=== PATIENT | male | born 1970 | race African-American/Black ===

== ENCOUNTER 2018-03-14 18:15 | Emergency (ER) | payer MEDICAID, OTHER ==
[~2018-03-14] VITALS: Ht 190.5 cm; Wt 76.5 kg
[~2018-03-14 18:15] MED LIST: DIVA500T2 PO; HYDR-3237 PO; RIVA15TA PO; RIVA20TA PO; ZOLP10TA PO
[2018-03-14 18:17] VITALS: BP 134/90
[2018-03-14] MEDS ORDERED: HYDROcodone/APAP 5/325 TABLET ONE (18:50)
[2018-03-14] MEDS ORDERED: HYDROcodone/APAP 5/325 TABLET PO ONE (19:00)
== END 2018-03-14 19:14 | disposition home or self-care (01) ==
LOC: ED 19:00
DX: S62.346A Nondisplaced fracture of base of fifth metacarpal bone, right hand, initial encounter for closed fracture (principal); I10 Essential (primary) hypertension; X58.XXXA Exposure to other specified factors, initial encounter; Y93.89 Activity, other specified; Y92.410 Unspecified street and highway as the place of occurrence of the external cause; Y99.8 Other external cause status
CPT/HCPCS: 29125; 82962; 99284

== ENCOUNTER 2018-04-04 23:09 | Emergency (ER) | payer MEDICAID, OTHER ==
[~2018-04-04] VITALS: Ht 190.5 cm; Wt 73.0 kg
[2018-04-04] MEDS ORDERED: ONDANSETRON 2MG/ML, 2ML IVPush ONE (23:30)
[2018-04-04] MEDS ORDERED: SODIUM CHLORIDE FLUSH 10ML SYR IVF ONE (23:30)
[2018-04-04] MEDS ORDERED: MORPHINE SULFATE 4 MG/ML, 1ML IVPush PRN (23:30)
[2018-04-04] MEDS ORDERED: ONDANSETRON 2MG/ML, 2ML ONE (23:31)
[2018-04-04] MEDS ORDERED: MORPHINE SULFATE 4 MG/ML, 1ML ONE (23:31)
[2018-04-04 23:46] LABS: MEAN CORPUSCULAR HEMOGLOBIN 32.5 pg (27.5-34.5); MEAN CORPUSCULAR HGB CONC 33.4 g/dL (33.2-36.2); MEAN CORPUSCULAR VOLUME 97.2 fL (81-97); MEAN PLATELET VOLUME 8.2 fL (7.4-10.4); PLATELET COUNT 247 x10^3/uL (130-400); RED BLOOD COUNT 3.89 x10^6/uL (4.38-5.82); RED CELL DISTRIBUTION WIDTH 15.9 % (9.4-14.8)
[2018-04-04] MEDS ORDERED: ALBUTEROL/IPRATROPIUM 2.5MG/0.5MG, 3 ML ONE (23:52)
[2018-04-04 23:53] LABS: MD YES
[2018-04-04] MEDS: ALBUTEROL/IPRATROPIUM 2.5MG/0.5MG, 3 ML NPPB SCH (23:56)
[2018-04-04 23:58] LABS: ALBUMIN 3.4 g/dL (3.4-5.0); ANION GAP 4 mmol/L (5-15); CALCIUM 8.3 mg/dL (8.5-10.1); CHLORIDE 113 mmol/L (98-107); CREATININE 0.76 mg/dL (0.7-1.3)
[2018-04-05 00:02] LABS: TROPONIN I < 0.015 ng/mL (0.000-0.045)
[2018-04-05 00:17] LABS: LYMPH#(MANUAL) 2.34 x10^3/uL (1-3.4); LYMPHS% (MANUAL) 52 % (22-44); MONOS#(MANUAL) 0.41 x10^3/uL (0.3-2.7); MONOS% (MANUAL) 9 % (2-9); SEG#(MANUAL) 1.76 x10^3/uL (1.8-6.8); SEGS% (MANUAL) 39 % (42-75)
[2018-04-05] MEDS: ALBUTEROL/IPRATROPIUM 2.5MG/0.5MG, 3 ML NPPB SCH (00:22)
[2018-04-05 00:26] LABS: <PLATELET ESTIMATE> ADEQUATE; <PLT MORPHOLOGY> NORMAL PLT MORPH; <RBC MORPHOLOGY> NORMAL
[2018-04-05] MEDS ORDERED: methylPREDNISolone SOD SUCC 125 MG/2 ML IVP ONE (01:00)
[2018-04-05] MEDS ORDERED: OMNIPAQUE 350 MG/ML, 100ML BOTTLE ONE (01:28)
[2018-04-05] MEDS ORDERED: methylPREDNISolone SOD SUCC 125 MG/2 ML ONE (01:40)
[2018-04-05 02:41] VITALS: BP 131/76
== END 2018-04-05 03:00 | disposition home or self-care (01) ==
LOC: ED 04-05 02:55
DX: R07.89 Other chest pain (principal); J45.901 Unspecified asthma with (acute) exacerbation
CPT/HCPCS: 36415; 71045; 71275; 80048; 82040; 83880; 84484; 85025; 93005; 94640; 96374; 96375; 99285; J2405; J2930; J7620; Q9967

== ENCOUNTER 2018-05-12 23:37 | Inpatient (IN) | payer OTHER, MEDICAID ==
[~2018-05-12] VITALS: Ht 190.5 cm; Wt 67.0 kg
[2018-05-13 00:18] LABS: MEAN CORPUSCULAR HEMOGLOBIN 32.2 pg (27.5-34.5); MEAN CORPUSCULAR HGB CONC 33.2 g/dL (33.2-36.2); MEAN CORPUSCULAR VOLUME 97.2 fL (81-97); MEAN PLATELET VOLUME 8.3 fL (7.4-10.4); PLATELET COUNT 214 x10^3/uL (130-400); RED BLOOD COUNT 4.62 x10^6/uL (4.38-5.82); RED CELL DISTRIBUTION WIDTH 13.7 % (9.4-14.8)
[2018-05-13 00:36] LABS: BASOPHILS # (AUTO) 0.04 x10^3/uL (0-0.1); BASOPHILS % (AUTO) 1 % (0-1); EOSINOPHILS # (AUTO) 0.02 x10^3/uL (0-0.4); EOSINOPHILS % (AUTO) 1 % (1-7); LYMPHOCYTES # (AUTO) 1.95 x10^3/uL (1-3.4); LYMPHOCYTES % (AUTO) 59 % (22-44); MD SCAN; MONOCYTES # (AUTO) 0.45 x10^3/uL (0.2-0.8); MONOCYTES % (AUTO) 14 % (2-9); NEUTROPHILS # (AUTO) 0.85 x10^3/uL (1.8-6.8); NEUTROPHILS % (AUTO) 26 % (42-75)
[2018-05-13] MEDS ORDERED: OMNIPAQUE 350 MG/ML, 100ML BOTTLE ONE (00:39)
[2018-05-13 00:41] LABS: INTERNATIONAL NORMALIZED RATIO 0.96 (0.93-1.1); PROTHROMBIN TIME 10.2 Seconds (9.6-11.5)
[2018-05-13] MEDS ORDERED: GUAIFENESIN/COD200MG-20MG/10ML LIQUID PO PRN (01:30)
[2018-05-13] MEDS ORDERED: ACETAMINOPHEN 325 MG TABLET PO PRN (01:30)
[2018-05-13] MEDS ORDERED: LABETALOL 5MG/ML, 20ML IV PRN (01:30)
[2018-05-13] MEDS ORDERED: GABAPENTIN 300 MG CAPSULE PO PRN (01:30)
[2018-05-13] MEDS ORDERED: LORazepam 2 MG/ML, 1ML IV PRN ×3 (01:30)
[2018-05-13] MEDS ORDERED: NICOTINE 14MG/24 HR PATCH.TD24 TD SCH (01:30)
[2018-05-13] MEDS ORDERED: morphine SULFATE 10 MG/ML, 1ML IVPush PRN (01:30)
[2018-05-13] MEDS ORDERED: LORazepam 0.5MG TABLET PO PRN (01:30)
[2018-05-13] MEDS ORDERED: THIAMINE 200 MG in DEXTROSE 5% 50 ML IVPB ONE (01:30)
[2018-05-13] MEDS ORDERED: DOCUSATE 100 MG CAPSULE PO PRN (01:30)
[2018-05-13] MEDS ORDERED: LORazepam 1MG TABLET PO PRN ×2 (01:30→10:30)
[2018-05-13 02:30] LABS: AMPHETAMINE SCREEN, URINE Negative (Negative); BARBITURATE SCREEN, URINE Negative (Negative); BENZODIAZEPINE SCREEN, URINE Negative (Negative); CANNABINOID SCREEN, URINE Negative (Negative); COCAINE SCREEN, URINE Negative (Negative); METHADONE SCREEN, URINE Negative (Negative); OPIATE SCREEN, URINE Negative (Negative)
[2018-05-13 03:51] VITALS: BP 132/87
[2018-05-13] MEDS: POTASSIUM CHLORIDE 20 MEQ, MVI ADULT 10 ML, FOLIC ACID 1 MG, MAGNESIUM SULFATE 1 GM in ... IV SCH ×2 (05:22→15:11)
[2018-05-13 06:17] LABS: ALBUMIN 3.4 g/dL (3.4-5.0); ANION GAP 9 mmol/L (5-15); CALCIUM 8.1 mg/dL (8.5-10.1); CHLORIDE 111 mmol/L (98-107)
[2018-05-13 06:22] LABS: ALANINE AMINOTRANSFERASE 20 U/L (12-78); ALKALINE PHOSPHATASE 72 U/L (45-117); BILIRUBIN,TOTAL 0.3 mg/dL (0.2-1.0); CREATININE 0.72 mg/dL (0.7-1.3); TOTAL PROTEIN 7.9 g/dL (6.4-8.2)
[2018-05-13 06:25] LABS: HEMOGLOBIN A1C 4.9 % (4.2-6.3)
[2018-05-13] MEDS: ONDANSETRON 2MG/ML, 2ML IVPush PRN ×2 (06:27→12:50)
[2018-05-13 06:55] VITALS: BP 117/77
[2018-05-13] MEDS ORDERED: DIVALPROEX 500 MG TABLET.DR PO SCH (09:00)
[2018-05-13 12:21] VITALS: BP 131/87
[2018-05-13] MEDS ORDERED: ATORVASTATIN 40 MG TABLET PO SCH (21:00)
[2018-05-14] MEDS ORDERED: THIAMINE 100 MG in DEXTROSE 5% 50 ML IVPB SCH (09:00)
== END 2018-05-13 16:55 | DRG 312 ==
LOC: ED 05-13 00:51 → EDIP 05-13 00:56 → 4WST 05-13 03:58
PROVIDERS: ADMIT Internal Medicine; ATTEND Internal Medicine
DX: R55 Syncope and collapse (principal); F10.129 Alcohol abuse with intoxication, unspecified; E11.9 Type 2 diabetes mellitus without complications; F17.210 Nicotine dependence, cigarettes, uncomplicated; F31.9 Bipolar disorder, unspecified; M62.81 Muscle weakness (generalized); I07.1 Rheumatic tricuspid insufficiency; I11.9 Hypertensive heart disease without heart failure; R56.9 Unspecified convulsions; G89.29 Other chronic pain; Z90.49 Acquired absence of other specified parts of digestive tract; Z88.0 Allergy status to penicillin; Z88.8 Allergy status to other drugs, medicaments and biological substances; Z82.49 Family history of ischemic heart disease and other diseases of the circulatory system; Z83.3 Family history of diabetes mellitus; Z86.711 Personal history of pulmonary embolism; Z86.73 Personal history of transient ischemic attack (TIA), and cerebral infarction without residual deficits
CPT/HCPCS: 36415; 70450; 70496; 70498; 70551; 80047; 80053; 80307; 82962; 83036; 85025; 85379; 85610; 85730; 93005; 93306; 99291; G0378; J2405; J3411; J3475; J3480; Q9967; 92523-GN

== ENCOUNTER 2018-08-22 15:49 | Emergency (ER) | payer MEDICAID ==
[~2018-08-22] VITALS: Ht 190.5 cm; Wt 87.0 kg
[2018-08-22 16:04] VITALS: BP 143/95
--- NOTE | 2018-08-22 16:11 | NUR ---
PT ON BP CUFF, PULSE OX. PT REFUSES GOWN BUT HAS NO COMPLAINTS OF PHYSICAL PAIN OR DISCOMFORT AT THIS TIME. PT INTOXICATED AND EMOTIONAL AT THIS TIME BUT COOPERATIVE WITH CARE. MULUGETA AT BS. CALL LIGHT WITHIN REACH.
--- NOTE | 2018-08-22 17:29 | NUR ---
REVIEWED XRAY AND POC WITH PT AND FAMILY. PT STATES UNABLE TO WALK AT THIS TIME. WILL CONTINUE TO MONITOR AND REASSESS.
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
== END 2018-08-22 17:53 | disposition home or self-care (01) ==
LOC: ED 17:47
DX: F10.120 Alcohol abuse with intoxication, uncomplicated (principal); J45.909 Unspecified asthma, uncomplicated; I10 Essential (primary) hypertension; F31.9 Bipolar disorder, unspecified; Z86.73 Personal history of transient ischemic attack (TIA), and cerebral infarction without residual deficits; Z88.6 Allergy status to analgesic agent; Z88.0 Allergy status to penicillin; Z88.8 Allergy status to other drugs, medicaments and biological substances; Y90.9 Presence of alcohol in blood, level not specified
CPT/HCPCS: 71045; 99283

== ENCOUNTER 2018-12-11 13:53 | Emergency (ER) | payer MEDICAID ==
[~2018-12-11] VITALS: Ht 177.8 cm; Wt 63.2 kg
[2018-12-11 14:12] LABS: BASOPHILS # (AUTO) 0.01 x10^3/uL (0-0.1); BASOPHILS % (AUTO) 0 % (0-1); EOSINOPHILS % (AUTO) 0 % (1-7); LYMPHOCYTES # (AUTO) 1.95 x10^3/uL (1-3.4); LYMPHOCYTES % (AUTO) 54 % (22-44); MD NO; MEAN CORPUSCULAR HEMOGLOBIN 32.8 pg (27.5-34.5); MEAN CORPUSCULAR HGB CONC 33.2 g/dL (33.2-36.2); MEAN CORPUSCULAR VOLUME 98.7 fL (81-97); MONOCYTES # (AUTO) 0.41 x10^3/uL (0.2-0.8); MONOCYTES % (AUTO) 11 % (2-9); NEUTROPHILS # (AUTO) 1.23 x10^3/uL (1.8-6.8); NEUTROPHILS % (AUTO) 34 % (42-75); PLATELET COUNT 197 x10^3/uL (130-400); RED BLOOD COUNT 4.69 x10^6/uL (4.38-5.82); RED CELL DISTRIBUTION WIDTH 13.8 % (9.4-14.8)
[2018-12-11 14:21] LABS: INTERNATIONAL NORMALIZED RATIO 0.94 (0.93-1.1); PROTHROMBIN TIME 9.9 Seconds (9.6-11.5)
[2018-12-11] MEDS ORDERED: RIVA10TA2 PO (14:32)
[2018-12-11] MEDS ORDERED: ACETAMINOPHEN 325 MG TABLET PO STA (14:39)
[2018-12-11] MEDS ORDERED: SUMATRIPTAN 6MG/0.5ML SQ STA (14:39)
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
--- NOTE | 2018-12-11 14:40 | NUR ---
DR. GARNICA AT BEDSIDE.
[2018-12-11] MEDS ORDERED: SUMATRIPTAN 6MG/0.5ML SQ ONE (14:47)
[2018-12-11] MEDS ORDERED: ACETAMINOPHEN 325 MG TABLET ONE (14:48)
--- NOTE | 2018-12-11 14:56 | NUR ---
PT MEDICATED WITH TYLENOL AND IMITREX SQ FOR HEADACHE, ORDERED BY DR. GARNICA.
--- NOTE | 2018-12-11 14:57 | NUR ---
PATIENT TO MRI AT THIS TIME.
[2018-12-11] MEDS ORDERED: VALPROATE SODIUM 750 MG in SODIUM CHLORIDE 0.9% 100 ML IV ONE (15:00)
--- NOTE | 2018-12-11 15:47 | NUR ---
PT MEDICATED PER EMAR
[2018-12-11 16:24] VITALS: BP 146/100
--- NOTE | 2018-12-11 16:26 | NUR ---
PT RESTING ON GURNEY. MEDICATION INFUSING. PT REPORTS PAIN IN HIS HEAD IS THE SAME AND HAS NOT YET IMPROVED. URINE SENT FOR ANALYSIS. NADN. WATER AND AN EXTRA BLANKET PROVIDED. BP AND O2 MONITORS APPLIED. CALL LIGHT WITHIN REACH. NO OTHER REQUESTS AT THIS TIME.
[2018-12-11 16:51] LABS: AMPHETAMINE SCREEN, URINE Negative (Negative); BARBITURATE SCREEN, URINE Negative (Negative); BENZODIAZEPINE SCREEN, URINE Negative (Negative); CANNABINOID SCREEN, URINE Negative (Negative); COCAINE SCREEN, URINE Negative (Negative); METHADONE SCREEN, URINE Negative (Negative); OPIATE SCREEN, URINE Negative (Negative)
== END 2018-12-11 18:03 | disposition home or self-care (01) ==
LOC: ED 16:59
DX: G43.119 Migraine with aura, intractable, without status migrainosus (principal); J45.909 Unspecified asthma, uncomplicated; I10 Essential (primary) hypertension; F31.9 Bipolar disorder, unspecified; Z86.73 Personal history of transient ischemic attack (TIA), and cerebral infarction without residual deficits; Z88.6 Allergy status to analgesic agent; Z88.0 Allergy status to penicillin; Z88.8 Allergy status to other drugs, medicaments and biological substances; F17.200 Nicotine dependence, unspecified, uncomplicated
CPT/HCPCS: 36415; 70450; 70496; 70498; 70551; 71045; 80047; 80307; 85025; 85610; 85730; 93005; 96365; 96372; 99291; J3030